=== PATIENT | female | born 1990 ===

== ENCOUNTER 2019-04-06 16:10 | Emergency (ER) | payer BC ==
--- NOTE | 2019-04-06 16:39 | ED ---
Lower Extremity - HPI Summary HPI Summary: 28 year old female reports to the ED with a chief complaint of right knee pain secondary to dislocating her patella. Patient was walking on the street when her patella dislocated. A physician at the scene reduced it for her, and the pain, which was severe at first, resided to an intensity of 2/10. She currently can bend her knee with minimal pain. She feels soreness and a little bit of pressure in her knee. 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 Patient occasionally drinks alcohol, no history of smoking or doing recreational drugs. - History of Current Complaint Chief Complaint: EDExtremityLower Stated Complaint: RT KNEE INJURY PER PT Time Seen by Provider: 04/06/19 16:18 Hx Obtained From: Patient Hx Last Menstrual Period: 2 weeks ago Mechanism Of Injury: Other - Walking normally when patella dislocated Onset of Pain: Immediate Onset/Duration: Minutes Severity Initially: Severe Severity Currently: Mild Pain Intensity: 2 Pain Scale Used: 0-10 Numeric Timing: Constant, Lasting Minutes Location: Is Discrete @ - left knee Character Of Pain: Aching Associated Signs And Symptoms: Positive: Knee Pain Aggravating Factor(s): Ambulation Alleviating Factor(s): Nothing - Allergies/Home Medications Allergies/Adverse Reactions: Allergies Allergy/AdvReac Type Severity Reaction Status Date / Time No Known Allergies Allergy Verified 12/30/12 14:46 Home Medications: Home Medications NK [No Home Medications Reported] 04/06/19 [History Confirmed 04/06/19] PMH/Surg Hx/FS Hx/Imm Hx Previously Healthy: Yes Endocrine/Hematology History: Denies: Hx Diabetes, Hx Thyroid Disease Cardiovascular History: Denies: Hx Hypertension Respiratory History: Denies: Hx Asthma, Hx Chronic Obstructive Pulmonary Disease (COPD) GI History: Denies: Hx Ulcer - Surgical History Surgery Procedure, Year, and Place: [place] teeth Infectious Disease History: No Infectious Disease History: Denies: Hx Hepatitis, Hx Human Immunodeficiency Virus (HIV), Traveled Outside the [place] in Last 30 Days - Family History Known Family History: Negative: Cardiac Disease, Hypertension - Social History Alcohol Use: Occasionally Substance Use Type: Reports: None Hx Tobacco Use: No Review of Systems Negative: Fever Positive: Arthralgia - Knee All Other Systems Reviewed And Are Negative: Yes Physical Exam - Summary Physical Exam Summary: VITAL SIGNS: Reviewed. GENERAL: Patient is a well-developed and nourished female who is lying comfortable in the stretcher. Patient is not in any acute respiratory distress. HEAD AND FACE: No signs of trauma. No ecchymosis, hematomas or skull depressions. No sinus tenderness. EYES: PERRLA, EOMI x 2, No injected conjunctiva, no nystagmus. EARS: Hearing grossly intact. Ear canals and tympanic membranes are within normal limits. MOUTH: Oropharynx within normal limits. NECK: Supple, trachea is midline, no adenopathy, no JVD, no carotid bruit, no c- spine tenderness, neck with full ROM. CHEST: Symmetric, no tenderness at palpation. LUNGS: Clear to auscultation bilaterally. No wheezing or crackles. CVS: Regular rate and rhythm, S1 and S2 present, no murmurs or gallops appreciated. ABDOMEN: Soft, non-tender. No signs of distention. No rebound, no guarding, and no masses palpated. Bowel sounds are normal. EXTREMITIES: FROM in all major joints, no edema, no cyanosis or clubbing. NEURO: Alert and oriented x 3. No acute neurological deficits. Speech is normal and follows commands. SKIN: Dry and warm. Triage Information Reviewed: Yes Vital Signs On Initial Exam: Initial Vitals Temp Pulse Resp BP Pulse Ox 98.2 F 82 16 115/62 99 04/06/19 16:11 04/06/19 16:11 04/06/19 16:11 04/06/19 16:11 04/06/19 16:11 Vital Signs Reviewed: Yes Procedures - Sedation Patient Received Moderate/Deep Sedation with Procedure: No Diagnostics - Vital Signs Vital Signs Temp Pulse Resp BP Pulse Ox 04/06/19 16:11 98.2 F 82 16 115/62 99 - Laboratory Lab Statement: Any lab studies that have been ordered have been reviewed, and results considered in the medical decision making process. - Radiology Knee XR Radiology Interpretation Completed By: Radiologist Summary of Radiographic Findings: Knee XR shows no right knee fracture. An ED physician has reviewed this report. Lower Extremity Course/Dx - Course Assessment/Plan: Patient is a 28-year-old female who presents to the emergency department with chief complaints of knee pain. X-ray of the right knee impression: No fracture dislocation. The patient was placed in a knee immobilizer and discharged home with follow-up with PCP. I discussed all the findings and test results with the patient. Patient was instructed to return to the emergency room immediately if any of the symptoms return or worsen. Plan of care was discussed with the patient and understands and agrees. All questions were answered at patient satisfaction. There were no further complaints or concerns. Lung exam before discharge: CTA B/L. Good air exchange. No wheezing or crackles heard. CVS: S1 and S2 present. No murmurs appreciated. Patient is alert and oriented x 3. Patient is hemodynamically stable. Patient will be discharged home with follow up PCP in the next 2-3 days - Diagnoses Provider Diagnoses: Knee pain Discharge ED - Sign-Out/Discharge Documenting (check all that apply): Patient Departure - Discharge Plan Condition: Stable Disposition: HOME Patient Education Materials: Knee Pain (ED) Referrals: Candi Flores MD [Medical Doctor] - Additional Instructions: Follow up with Dr. Flores, Orthopedics, in the next 2-3 days. Return to the Emergency Dept if you experience new or worsening symptoms. - Billing Disposition and Condition Condition: STABLE Disposition: Home - Attestation Statements Document Initiated by Darianibe: Yes Documenting Scribe: Hoang Elizabeth Provider For Whom Ethan is Documenting (Include Credential): Vincenzo Montoya MD. Scribe Attestation: Hoang Angeles scribed for Vincenzo Montoya MD. on 04/07/19 at 2122. Scribe Documentation Reviewed: Yes Provider Attestation: The documentation as recorded by the scribeHoang accurately reflects the service I personally performed and the decisions made by , Vincenzo Montoya MD. Status of Scribe Document: Viewed
[2019-04-06 18:11] VITALS: BP 106/87
== END 2019-04-06 18:10 | disposition home or self-care (01) ==
LOC: ED 16:10
DX: M25.561 Pain in right knee (principal)
CPT/HCPCS: 99282